=== PATIENT | male | born 1955 | race Caucasian/White ===

== ENCOUNTER 2025-01-29 12:27 | Outpatient (CLI) | payer MEDICARE ==
[~2025-01-29 12:27] MED LIST: AMLO5TAB21 PO; ATOR20TA PO; IPRA4AER IH; LISI40TA20 PO; WARF2TAB PO; WARF5TAB2 PO; WARF6TAB PO
--- NOTE | 2025-01-29 14:10 | RADIOLOGY REPORT ---
Procedure: CT CT CHEST LOW DOSE Reason for study/Clinical History: ENCNTR SCREEN FOR MALIGNANT NEOPLASM OF RESPIRATORY ORGANS COMPARISON: None TECHNIQUE: Multidetector CT of the chest was performed from the lung apices to the upper abdomen without the use of intravenous contract. Axial, coronal and sagittal multiplanar reformats were performed. Radiation Dose Information: CT Dose: CTDI volume is 2.8 mGy. Dose-length product is 104 mGy*cm The dose indicators for CT are the volume Computed Tomography (CT) Dose Index (CTDIvol) and the Dose Length Product (DLP), and are measured in units of mGy and mGy-cm, respectively. These indicators are not patient dose, but values generated from the CT scanner acquisition factors. The report includes radiation exposure data for exposures received during this examination. FINDINGS: Lower neck: Normal thyroid. Lungs: No focal consolidation. Dependent atelectasis. Moderate centrilobular emphysema. No suspicious pulmonary nodules Heart/Vascular Structures: Coronary artery calcifications. Vascular calcifications of the aorta. Total calcium score 107 (25th to 50th percentile). Lymph Nodes: No adenopathy Pleura: No pleural effusion or significant pneumothorax. Musculoskeletal: No acute osseous abnormality. Soft tissues: Normal. Upper abdomen: Limited portions of the upper abdomen are unremarkable. IMPRESSION: No suspicious pulmonary nodule. LUNG RADS Category 1: Continue annual screening with LDCT
== END 2025-01-29 23:59 | disposition home or self-care (01) ==
LOC: RAD 12:27
DX: Z12.2 Encounter for screening for malignant neoplasm of respiratory organs (principal); J43.2 Centrilobular emphysema; J98.11 Atelectasis; I25.10 Atherosclerotic heart disease of native coronary artery without angina pectoris; I70.0 Atherosclerosis of aorta; F17.210 Nicotine dependence, cigarettes, uncomplicated
CPT/HCPCS: 71271